=== PATIENT | female | born 1980 | race Caucasian/White ===

== ENCOUNTER 2023-10-05 13:22 | Emergency (ER) | payer OTHER, SELFPAY ==
[2023-10-05 13:29] VITALS: BP 136/94; PULSE 98; RESP 20; TEMP 37; O2SAT 100
--- NOTE | 2023-10-05 14:45 | ECG_ITS ---
Measurements Intervals [place] Rate: 52 P: 53 VT: 133 QRS: 57 QRSD: 94 T: 46 QT: 426 QTc: 397 Interpretive Statements SINUS BRADYCARDIA BORDERLINE ECG NO PREVIOUS ECG AVAILABLE FOR COMPARISON Electronically Signed On 10-05-2023 16:33:53 CDT by Fabrizio Espinoza D.O.
--- NOTE | 2023-10-05 14:59 | ED.GENADULT ---
HPI - General Adult General Chief complaint: Upper Respiratory Infection Stated complaint: Upper Back/Shoulder Pain/Cough Source: patient Mode of arrival: ambulatory Limitations: no limitations History of Present Illness HPI narrative: Patient presents for evaluation of multiple concerns. She indicates she has had left flank pain and left-sided abdominal pain for months. She reports a constant dull ache in the affected areas. Over the last course last few days she has developed a sharp intermittent pain in the left side of her abdomen. She does not provide me with a numerical rating to her pain. Pain lasts anywhere from 30 seconds to minutes. She cannot identify any aggravating or relieving factors. She has had this same sharp pain in the past, over the last few years, but never received a formal diagnosis. She indicates she has also experienced some difficulty breathing over the last 10 days. She reports associated cough, shortness of breath, congestion, chest pain that she describes as ?bronchial spasms?, palpitations, chills, nausea, vomiting, diarrhea. She is unsure whether she has had a fever. She is not aware of any sick contacts to her knowledge. She intended on coming in for evaluation sooner but had some difficulty with her car. She reports underlying history of Graves disease, lupus, fibromyalgia, depression, degenerative disc disease, PUD, and liver disease. She reports drinking 3-4 glasses of wine 3-4 days per week. Related Data Home Medications Medication Instructions Recorded Confirmed Adults Multivitamin 10/05/23 Iud 10/05/23 amlodipine 5 mg tablet mg 10/05/23 gabapentin 300 mg tablet 300 mg PO BID 10/05/23 10/05/23 Allergies Allergy/AdvReac Type Severity Reaction Status Date / Time Penicillins Allergy Mild Unverified 09/15/13 14:29 nickel Allergy Verified 04/22/12 12:08 Review of Systems Review of Systems: CONSTITUTIONAL: Reports chills. Denies sweats. EYES: Denies visual changes, redness, or discharge. ENT: Reports nasal congestion. Denies sore throat. CARDIOVASCULAR: Reports chest pain and palpitations. RESPIRATORY: Reports cough and shortness of breath. GASTROINTESTINAL: Reports nausea, vomiting, diarrhea. GENITOURINARY: Denies dysuria or hematuria. SKIN: Denies rash or itching. MUSCULOSKELETAL: Denies back pain, joint pain, or myalgia. NEUROLOGIC: Denies headache, numbness, dizziness, or weakness. PSYCHIATRIC: Denies anxiety or depression. [facility] Past Medical History Medical History Degenerative disc disease Depression Fibromyalgia Graves disease Lupus Surgical History Surgical History Surgical history unknown Family History Family History Mother Unknown family medical history Social History Social History Alcohol intake: current Drinks per week: 16 Gender identity (if verbalized by the patient): Female Spiritual care concerns: No Exam Narrative: GENERAL: Well-appearing, well-nourished, and in no acute distress. HEAD: Normocephalic, atraumatic. EYES: PERRLA and EOMI. Exophthalmos present ENT: Nares clear, no rhinorrhea or epistaxis. Mucous membranes moist. Oropharynx without tonsillar hypertrophy exudate or other lesions. Bilateral TMs pearly courtney nonbulging NECK: Supple. No adenopathy or masses. No carotid bruits or JVD CHEST: Clear to auscultation. No respiratory distress. No wheezes rales or rhonchi HEART: Regular rate and rhythm. No murmur heard. Normal peripheral pulses. ABDOMEN: Soft, left sided abdominal tenderness without rebound or guarding. Nondistended, normal active bowel sounds. EXTREMITIES: Normal range of motion. No edema. SKIN: Warm, dry, no rash. NEURO: No focal deficits. Alert and orient
== END 2023-10-05 15:07 | disposition short-term general hospital (02) ==
PROVIDERS: Emergency Provider Nurse Practitioner
DX: R07.9 Chest pain, unspecified (principal); R10.9 Unspecified abdominal pain
CPT/HCPCS: 81003; 93005; 99213; G0463

== ENCOUNTER 2023-11-15 14:18 | Emergency (ER) | payer OTHER, SELFPAY ==
[2023-11-15 14:45] VITALS: BP 145/109; PULSE 77; RESP 16; TEMP 37.1; O2SAT 100
[2023-11-15 14:56] VITALS: BP 145/109; PULSE 77; RESP 16; TEMP 37.1; O2SAT 100
--- NOTE | 2023-11-15 15:08 | ED.GENADULT ---
HPI - General Adult General Chief complaint: Upper Respiratory Infection Stated complaint: Congestion/Cough/Ear Pain Source: patient, RN notes reviewed and old records reviewed Mode of arrival: ambulatory Limitations: no limitations History of Present Illness HPI narrative: patient with complaints sinus congestion, sinus pain, cough, sinus drainage, headache this started last week. Patient taking [id number] medications with no relief. Patient states he is now having blood tinged nasal drainage and sinus pain. patient also states is out of her amlodipine for blood pressure. Patient requesting med refill until she can see your primary care physician next month. Related Data Home Medications Medication Instructions Recorded Confirmed amlodipine 5 mg tablet 5 mg PO DAILY 10/05/23 11/15/23 gabapentin 300 mg tablet 300 mg PO BID 10/05/23 11/15/23 Allergies Allergy/AdvReac Type Severity Reaction Status Date / Time Penicillins Allergy Mild Nausea Unverified 11/15/23 14:55 nickel Allergy Unknown Verified 11/15/23 14:55 Review of Systems Constitutional: Constitutional: Reports no additional constitutional complaints, Denies body ache(s), Denies chills, Denies fatigue, Denies fever(s) and Reports headache(s) Eyes: Eyes: Reports no additional eye complaints and Denies blurry vision ENT: Reports system reviewed and no additional complaints, except as documented, Denies vertigo, Denies dizziness, Denies ear discharge, Denies otalgia, Denies facial pain, Reports headache(s), Reports nasal congestion, Reports nasal discharge, Reports sinus pain, Reports sinus pressure and Denies sore throat Cardiovascular: Cardiovascular: Reports no additional cardiovascular complaints, Denies chest pain, Denies chest pain at rest, Denies rapid heart rate and Denies dyspnea Respiratory: Respiratory: Reports no additional respiratory complaints, Denies chest congestion, Reports cough, Denies pain on inspiration, Denies pain with cough and Denies dyspnea Gastrointestinal: Gastrointestinal: Denies abdominal pain, Denies diarrhea, Denies nausea and Denies vomiting Integumentary/Breasts: Skin/Breast: Denies rash Neurologic: Reports system reviewed and no additional complaints, except as documented, Denies vertigo, Denies dizziness and Denies headache(s) Endocrine: Endocrine: Denies fatigue [facility] Past Medical History Medical History Degenerative disc disease Depression Fibromyalgia Graves disease Lupus Surgical History Surgical History Surgical history unknown Family History Family History Mother Unknown family medical history Social History Social History Alcohol intake: current Drinks per week: 16 Gender identity (if verbalized by the patient): Female Spiritual care concerns: No Comments At the time of my signature, I reviewed and agree with the nursing past medical, surgical, social, and family history. There is no relevant family history pertinent to the patient complaint. Exam Const: General: cooperative, healthy appearing, no acute distress and well nourished Nutritional Appearance: well nourished Orientation/consciousness: patient oriented x3 Limitations: no limitations HENMT: Head: normal to inspection and normocephalic Ears: external ears normal, TM's normal bilaterally, EAC's normal and mastoids normal Face/Nose/Sinus: Abnormal mucous membranes and turbinates present boggy and erythematous, Nasal discharge present bloody bilateral, normal facial exam and sinus tenderness Face and sinus: normal facial exam and sinus tenderness maxillary Mouth: Yes Normal oral and palatal mucosa present, Yes oropharynx normal and Yes moist mucous membranes Throat: tonsils normal, uvula midline and no uvular
== END 2023-11-15 15:17 | disposition home or self-care (01) ==
PROVIDERS: Emergency Provider Registered Nurse
DX: J01.90 Acute sinusitis, unspecified (principal); I10 Essential (primary) hypertension; M79.7 Fibromyalgia; E05.00 Thyrotoxicosis with diffuse goiter without thyrotoxic crisis or storm
CPT/HCPCS: 99213; G0463

== ENCOUNTER 2023-11-16 02:46 | Emergency (ER) | payer OTHER, SELFPAY ==
[2023-11-16 02:49] VITALS: BP 122/93; PULSE 82; RESP 20; TEMP 36.4; O2SAT 99
--- NOTE | 2023-11-16 03:06 | ED.ALLEREA ---
HPI - Allergic Reaction General Chief complaint: Allergic Reaction Stated complaint: allergic reaction Time Seen by Provider: 11/16/23 03:06 History of Present Illness HPI narrative: 43-year-old female patient with known history of lupus and Graves disease, fibromyalgia and hypertension is here with complaints of swelling of the face that started after she took a dose of doxycycline which was prescribed to her yesterday for sinus infection. She also took Flonase for the 1st time. She states that couple of hours back she started noticing some swelling of the face and the more on the right side than the left and had some itchy throat. She did not have any difficulty breathing or swallowing. She did take Benadryl at home. She was also given famotidine which she has already taken. She does have history of allergies to penicillin. She reports no wheezing or tightness in the chest. Related Data Home Medications Medication Instructions Recorded Confirmed gabapentin 300 mg tablet 300 mg PO BID 10/05/23 11/16/23 Xyzal 11/16/23 amlodipine 10 mg tablet (Norvasc) 10 mg PO DAILY 11/16/23 11/16/23 cetirizine 10 mg tablet (Zyrtec) 10 mg PO DAILY 11/16/23 11/16/23 doxycycline hyclate 100 mg capsule 100 mg PO DAILY 11/16/23 11/16/23 (Vibramycin) famotidine 11/16/23 fluticasone propionate 50 1 spray intranasal DAILY 11/16/23 11/16/23 mcg/actuation nasal spray,suspension (Flonase Allergy Relief) Allergies Allergy/AdvReac Type Severity Reaction Status Date / Time Penicillins Allergy Mild Nausea Verified 11/16/23 03:09 nickel Allergy Unknown Verified 11/16/23 03:09 Review of Systems Review of Systems: All systems reviewed & are unremarkable except as noted in HPI and below PMFSH Past Medical History Medical History (Updated 11/16/23 @ 03:23 by Anjelica Rankin MD) Degenerative disc disease Depression Fibromyalgia Graves disease Lupus Surgical History Surgical History (Updated 11/16/23 @ 03:17 by Anjelica Rankin MD) H/O thyroidectomy Surgical history unknown Family History Family History Mother Unknown family medical history Social History Social History Alcohol intake: current Drinks per week: 16 Gender identity (if verbalized by the patient): Female Spiritual care concerns: No Exam Narrative: Alert and anxious female who appears in no acute distress. Stable vital signs. HEENT: normocephalic. Patient does have some facial asymmetry with the right side being swollen than the left which also looks slightly puffy. There is no angioedema of the lips noted. Pupils are midsize equal and reactive to light. EOMs are intact. Ear nose throat appear to be normal. Oral mucous membrane is are intact and moist and pink. There is no erythema noted inside the oral cavity nor is there any swelling. Uvula is midline and normal shape and contour. Neck is supple. Breath sounds are clear bilaterally. Heart tones are regular. Skin is warm and dry no rash or hives are noted. Abdomen is soft and nontender. Neurologic exam is grossly normal. Course Course Emergency Course: Patient will be given dexamethasone 1 dose here. Will send her home with a Medrol Dosepak. I have advised the patient to stay away from doxycycline to the swelling subsides. She does indicate that she has an appointment with her new doctor in the next 6 days and has been encouraged to keep that. Vital Signs Vital signs: Vital Signs Temperature 36.4 C L 11/16/23 02:49 Pulse Rate 82 11/16/23 02:49 Respiratory Rate 20 11/16/23 02:49 Blood Pressure 122/93 H 11/16/23 02:49 Pulse Oximetry 99 11/16/23 02:49 Oxygen Delivery Room Air 11/16/23 02:49 Temperature 36.4 C L 11/16/23 02:49 Pulse Rate 82 11/16/23 02:49 Respiratory Rate 20 11/16/23 02:49 Blood Pressure 122/93 H 11/16/23 0
[2023-11-16] MEDS: dexAMETHasone SOD PHOS INJ 10 MG/ML 1 ML VIAL IM (03:18)
== END 2023-11-16 03:50 | disposition home or self-care (01) ==
PROVIDERS: Emergency Provider Emergency Medicine; PCP Nurse Practitioner Family
DX: T78.40XA Allergy, unspecified, initial encounter (principal); R22.0 Localized swelling, mass and lump, head; M32.9 Systemic lupus erythematosus, unspecified; E05.00 Thyrotoxicosis with diffuse goiter without thyrotoxic crisis or storm; M79.7 Fibromyalgia; I10 Essential (primary) hypertension
CPT/HCPCS: 96372; 99283; J1100